=== PATIENT | female | born 1970 | race American Indian/Alaskan Native ===

== ENCOUNTER 2018-01-08 15:30 | Emergency (ER) | payer MEDICAID ==
[2018-01-08] MEDS ORDERED: NACL 0.9% 500 ML 500 ML IV ONE (16:20)
[2018-01-08] MEDS ORDERED: NACL 0.9% 1000 ML 2,000 ML ONE (16:38)
--- NOTE | 2018-01-08 16:47 | Emergency Department Report ---
HPI - General Chief Complaint: Fever Time Seen by Provider: 01/08/18 16:41 - HPI HPI: 47-year-old female presents to the emergency department with multiple complaints. The patient says that she has been having some shortness of breath, diarrhea including stool incontinence, fever, and some trouble with her esophagus and/or trouble swallowing along with some nausea and vomiting. She says that she has had feverish symptoms for many weeks but is never checked her temperature. She has been having one-week of the diarrhea and one or 2 episodes of the incontinence. She's been having many months of a mixed dry and productive cough. She is a former smoker having quit about one week ago. Any time that she tries to eat or drink anything she gets nauseated and has trouble keeping it down and often vomits. She has a past medical history of non-insulin -dependent diabetes that was newly diagnosed, hypertension and HIV. She is compliant with her medications and says that the dosage of her HIV medications was recently increased by her primary care physician, Dr. Manuel. No recent travel or sick contacts at home. She has not taken anything for her symptoms prior to presentation. ED Past Medical Hx - Past Medical History Previous Medical History?: Yes Hx HIV: Yes Additional medical history: anxiety, Depression - Surgical History Past Surgical History?: No - Social History Smoking Status: Former Smoker Substance Use Type: Alcohol, Prescribed - Medications Home Medications: Home Medications Medication Instructions Recorded Confirmed Last Taken Type Acyclovir [Zovirax] 400 mg PO TID 01/08/18 01/08/18 01/07/18 History Efavirenz/Emtricitab/Tenofovir 1 each PO QDAY 01/08/18 01/08/18 01/07/18 History [Atripla Tablet] Hydroxyzine HCl 25 mg PO BID 01/08/18 01/08/18 01/07/18 History Metoprolol [Lopressor] 25 mg PO BID 01/08/18 01/08/18 01/07/18 History QUEtiapine [SEROquel] 100 mg PO QHS 01/08/18 01/08/18 01/07/18 History Ranitidine HCl [Acid Cooker Operator] 150 mg PO BID 01/08/18 01/08/18 01/07/18 History Sertraline [Zoloft] 100 mg PO QDAY 01/08/18 01/08/18 01/07/18 History Levofloxacin [Levaquin] 750 mg PO QDAY #7 tablet 01/09/18 Unknown Rx Ondansetron [Zofran Odt] 4 mg PO Q8H PRN #10 tab.rapdis 01/09/18 Unknown Rx metroNIDAZOLE [Flagyl] 500 mg PO Q12HR #14 tab 01/09/18 Unknown Rx ED Review of Systems ROS: Stated complaint: SOB, CHEST PAIN, FEVER AND INCONTINENCE Other details as noted in HPI Comment: All other systems reviewed and negative Constitutional: chills, fever, weakness Eyes: denies: eye pain, eye discharge, vision change ENT: throat pain. denies: ear pain Respiratory: cough, shortness of breath Cardiovascular: denies: chest pain, edema Gastrointestinal: nausea, vomiting, diarrhea Genitourinary: dysuria. denies: discharge Musculoskeletal: back pain, myalgia Skin: denies: rash, lesions Neurological: denies: headache, numbness Physical Exam - Physical Exam Vital Signs: Vital Signs 01/08/18 16:03 Temperature 102.4 F H Pulse Rate 100 H Respiratory 18 Rate Blood Pressure 94/42 O2 Sat by Pulse 97 Oximetry ED Course Vital Signs 01/08/18 16:03 Temperature 102.4 F H Pulse Rate 100 H Respiratory 18 Rate Blood Pressure 94/42 O2 Sat by Pulse 97 Oximetry ED Medical Decision Making - Lab Data Result diagrams: 01/08/18 16:35 01/08/18 16:35 - EKG Data -: EKG Interpreted by Me EKG shows normal: sinus rhythm, axis, intervals, QRS complexes, ST-T waves Rate: normal - EKG Data When compared to previous EKG there are: previous EKG unavailable Interpretation: normal EKG Critical care attestation.: If time is entered above; I have spent that time in minutes in the direct care of this critically ill patient, excluding procedure time. ED Disposition Clinical Impression: HIV (human immunodeficiency virus infection), UTI (urinary tract infection), Pharyngitis, Diarrhea Disposition: DC-01 TO HOME OR SELFCARE Is pt being admited?: No Condition: Stable Instructions: Acute Diarrhea (ED), Pharyngitis (ED), Acute Nausea and Vomiting (ED), Fever in Adults (ED), Human Immunodeficiency Virus Infection (ED) Additional Instructions: Please follow-up with your primary care physician in the next few days. Return to the emergency Department with any worsening of her symptoms, intractable fever, intractable vomiting or inability to stay hydrated, or with any acute distress. Take the antibiotics prescribed for you. You have been given multiple referrals for gastroenterology, infectious disease , and the local health department. You can use Tylenol every 4 hours and ibuprofen every 6 hours, using weight- based dosing, as needed for fever or discomfort. Prescriptions: Levofloxacin [Levaquin] 750 mg PO QDAY #7 tablet metroNIDAZOLE [Flagyl] 500 mg PO Q12HR #14 tab Ondansetron [Zofran Odt] 4 mg PO Q8H PRN #10 tab.rapdis PRN Reason: Nausea Referrals: PRIMARY CARE, [Primary Care Provider] - ABI PLAZA MD [Staff Physician] - SHY HOLLINGSWORTH MD [Staff Physician] - [facility] [Outside] - [facility] [Outside] - [facility] Time of Disposition: 00:23
[2018-01-08 16:48] LABS: Basophils % (Auto) 0.2 % (0.0-1.8); Eosinophils % (Auto) 0.1 % (0.0-4.3); Hematocrit 32.1 % (30.3-42.9); Hemoglobin 10.1 gm/dl (10.1-14.3); Lymphocytes # (Auto) 1.2 K/mm3 (1.2-5.4); Lymphocytes % (Auto) 9.4 % (13.4-35.0); Mean Corpuscular HGB Conc 32 % (30-34); Mean Corpuscular Hemoglobin 27 pg (28-32); Mean Corpuscular Volume 85 fl (79-97); Monocytes # (Auto) 1.4 K/mm3 (0.0-0.8); Monocytes % (Auto) 11.3 % (0.0-7.3); Platelet Count 301 K/mm3 (140-440); Red Blood Count 3.79 M/mm3 (3.65-5.03); Red Cell Distribution Width 15.5 % (13.2-15.2)
[2018-01-08 16:58] LABS: INR 1.05 (0.87-1.13)
[2018-01-08 17:03] LABS: Albumin 3.3 g/dL (3.9-5); Calcium 8.5 mg/dL (8.4-10.2)
--- NOTE | 2018-01-08 17:09 | XRay Report ---
FINAL REPORT EXAM: XR CHEST 1V AP HISTORY: possible Sepsis TECHNIQUE: AP portable view of the chest PRIORS: None. FINDINGS: Lines, tubes, and devices: N/A Lungs and pleura: Trachea is normal in position. Lungs are clear of infiltrate, pleural effusion, vascular congestion, or pneumothorax. Heavily calcified granuloma in the left base medially is noted. Cardiomediastinal silhouette: Cardiac and mediastinal silhouettes are unremarkable. Other: Bony structures are intact. IMPRESSION: No acute cardiopulmonary process seen.
[2018-01-08] MEDS ORDERED: TYLENOL PO ONE (17:30)
[2018-01-08] MEDS ORDERED: LEVAQUIN 750MG/150ML 750 MG/150 ML BAG IV ONE (17:39)
[2018-01-08] MEDS ORDERED: ZOFRAN IV ONE (19:37)
--- NOTE | 2018-01-08 20:25 | Cat Scan Report ---
FINAL REPORT EXAM: CT ANGIO CHEST HISTORY: SOB, elevated dimer TECHNIQUE: Enhanced CT of the chest at 1.25 mm axial intervals following a pulmonary embolism protocol. Coronal and sagittal imaging were also obtained. Coronal oblique MIP projections were obtained. Contrast: 100 ml of Omnipaque 350 given IV. PRIORS: None. FINDINGS: There is no evidence for pulmonary embolism in the main pulmonary artery, right and left pulmonary arteries or their major distributions. However, CT does not exclude distal pulmonary emboli. Otherwise, the lung parenchyma are expanded and clear with no evidence for parenchymal nodules, infiltrates, congestion, or pleural effusion. There is no evidence for mediastinal, hilar, or axillary adenopathy. Cardiovascular structures are within normal limits. No evidence for ventricular chamber enlargement is seen. Images through the lung bases include the upper abdomen which show no abnormalities of the visualized abdominal viscera. Bony structures demonstrate no focal abnormalities. IMPRESSION: No evidence for pulmonary embolism. Negative CT of the chest.
[2018-01-08] MEDS ORDERED: NACL 0.9% 1000 ML 1,000 ML IV ONE (21:18)
--- NOTE | 2018-01-08 21:26 | XRay Report ---
FINAL REPORT EXAM: XR ABDOMEN 2V HISTORY: Abd pain TECHNIQUE: Supine and upright views of the abdomen PRIORS: None. FINDINGS: The bowel gas pattern is nonspecific. No free air is identified. Soft tissues have no evidence for mass shadows or calcifications. The bony structures are intact. Excreted contrast from prior radiographic procedure is noted in the collecting systems and bladder. IMPRESSION: Nonspecific, nonobstructive bowel gas pattern with no acute process noted.
[2018-01-08 23:18] LABS: Bilirubin,Urine NEG (Negative); Blood,Urine NEG (Negative); Color,Urine Yellow (Yellow); Mucus,Urine FEW /HPF; Urobilinogen,Urine < 2.0 mg/dL (<2.0)
[2018-01-09 00:32] VITALS: BP 119/53
== END 2018-01-09 01:03 | disposition home or self-care (01) ==
LOC: ED 15:30
DX: N39.0 Urinary tract infection, site not specified (principal); J20.9 Acute bronchitis, unspecified; R19.7 Diarrhea, unspecified; F41.9 Anxiety disorder, unspecified; F32.9 Major depressive disorder, single episode, unspecified; Z87.891 Personal history of nicotine dependence
CPT/HCPCS: 36415; 71045; 71275; 74019; 80053; 81001; 82140; 82805; 84484; 84703; 85007; 85025; 85379; 85610; 87040; 87045; 87086; 93005; 93010; 96361; 96365; 96375; 99285; J1956; J2405; J7030; Q9967